=== PATIENT | male | born 1975 | race Caucasian/White ===

== ENCOUNTER 2017-01-15 13:22 | Emergency (ER) | payer OTHER ==
--- NOTE | ~2017-01-15 | US85 ---
[facility] A Service of [facility] RADIOLOGY TEXT RESULTS PATIENT: JANNETTE DURAN JR LOCATION: SED : 79 UNIT #: [id number] AGE: [address]: Srinivasan Mcdonald PAC SEX: M ORDER DR: [id number] [place] [id number] [id number] E MR#: [id number] Acc #: [id number] NAME: JANNETTE DURAN : 1975 SEX: M STUDY DATE/TIME: 01/15/2017 14:14 UNIT: SED ROOM: STUDY DESCRIPTION: [facility] Datumate or [facility] Stdy Attending Physician: Srinivasan Mcdonald P.A.-C. Ordering Physician: Srinivasan Mcdonald P.A.-C. Primary Care Physician: Matthew Emery Jr., M.D. MEDICAL IMAGING REPORT This report is preliminary unless electronic signature is present. EXAM Right lower extremity venous ultrasound HISTORY Right calf pain for 2 days. Slipped while walking yesterday. TECHNIQUE Venous ultrasound examination of the right lower extremity was performed using grayscale, spectral Doppler and color flow Doppler imaging. FINDINGS The examination is negative. There is no evidence of right lower extremity deep venous thrombus from the groin to the lower calf. Visualized greater saphenous vein is also patent. IMPRESSION Negative examination. No evidence of right lower extremity deep venous thrombosis. Dictated by... Brandt Simms M.D. THIS IS AN ELECTRONICALLY VERIFIED REPORT Brandt Simms M.D. at 01/15/2017 11:12 PM DFL/pcl TD: 01/15/2017 17:17 JOB #: [id number] [facility] A Service [facility] RADIOLOGY TEXT RESULTS PATIENT: JANNETTE DURAN JR LOCATION: SED : 77 UNIT #: [id number] AGE: [address]: Srinivasan Mcdonald PAC SEX: M ORDER DR: MEDICAL IMAGING REPORT Page 1 of 1
--- NOTE | ~2017-01-15 | CR253 ---
[facility] A Service of [facility] RADIOLOGY TEXT RESULTS PATIENT: JANNETTE DURAN JR LOCATION: SED : 77 UNIT #: [id number] AGE: [address]: Srinivasan Mcdonald SEX: M ORDER DR: [id number] [place] [address] [id number] E MR#: [id number] Acc #: [id number] NAME: JANNETTE DURAN : 1975 SEX: M STUDY DATE/TIME: 01/15/2017 14:02 UNIT: SED ROOM: STUDY DESCRIPTION: CR Tibia and Fibula 2 Views Rt Attending Physician: Srinivasan Mcdonald P.A.-C. Ordering Physician: Srinivasan Mcdonald P.A.-C. Primary Care Physician: Matthew Emery Jr., M.D. MEDICAL IMAGING REPORT This report is preliminary unless electronic signature is present. EXAM Right tibia and fibula, 01/15/2017 14:02 hours HISTORY 41-year-old man with 1-week history of posterior calf pain radiating to heel with symptoms worsening today. No known injury. COMPARISON None FINDINGS AP and lateral views of the tibia and fibula demonstrate normal bone density. There is no fracture, dislocation or periosteal reaction. The distal Achilles tendon does not appear thickened and there is no edema in the Achilles triangle. IMPRESSION Negative tibia and fibula. Dictated by... Amy Wyatt M.D. THIS IS AN ELECTRONICALLY VERIFIED REPORT Amy Wyatt M.D. at 01/15/2017 7:08 PM Sanju TD: 01/15/2017 15:54 JOB #: [id number] MEDICAL IMAGING REPORT Page 1 of 1
[~2017-01-15 13:22] MED LIST: ADDERALL20 M1 PO; CIPRO PO; IBUPROFEN200 M1; KEFLEX500 M1 PO; MEDROL PO; NORCO 10/325 TA1 TAB PO; PEN-VEE K PO; VALTREX PO; VICODIN 5/1 TAB 5/50 PO; VICODIN 5/500 T1 TAB PO
[2017-01-15] MEDS ORDERED: NO MEDICATIONS (13:26)
== END 2017-01-15 15:17 | disposition home or self-care (01) ==
LOC: SED 13:22
DX: M79.604 Pain in right leg (principal); R03.0 Elevated blood-pressure reading, without diagnosis of hypertension; J45.909 Unspecified asthma, uncomplicated
CPT/HCPCS: 73590; 93971; 99284